=== PATIENT | male | born 1970 | race Caucasian/White ===

== ENCOUNTER 2020-06-19 06:55 | Emergency (ER) | payer MEDICAID ==
[~2020-06-19] VITALS: Ht 182.9 cm; Wt 109.1 kg
[~2020-06-19 06:55] MED LIST: ASPI-1265 PO
[2020-06-19] MEDS ORDERED: acetaminophen 325mg tablet PO ONE (07:50)
[2020-06-19 07:53] LABS: CLARITY,URINE CLEAR (Clear); COLOR,URINE YELLOW (Yellow); GLUCOSE, URINE NEGATIVE (Neg); KETONES,URINE NEGATIVE (Neg); LEUKOCYTE ESTERASE ,URINE NEGATIVE (Neg); NITRITES, URINE NEGATIVE (Neg); OCCULT BLOOD,URINE NEGATIVE (Neg); PROTEIN,URINE NEGATIVE (Neg); UA COLLECTION TYPE VOIDED; UROBILINOGEN,URINE 0.2 E.U/dL (0.2-1.0)
[2020-06-19 08:37] VITALS: BP 138/89
== END 2020-06-19 08:54 | disposition home or self-care (01) ==
LOC: ER 06:56
DX: I86.1 Scrotal varices (principal); K21.9 Gastro-esophageal reflux disease without esophagitis; E11.9 Type 2 diabetes mellitus without complications; Z79.82 Long term (current) use of aspirin
CPT/HCPCS: 76870; 81003; 99284

== ENCOUNTER 2020-11-16 11:47 | Emergency (ER) | payer MEDICAID ==
[~2020-11-16] VITALS: Ht 182.9 cm; Wt 9.1 kg
[2020-11-16] MEDS ORDERED: LIDOcaine 2% 10ml TOPICAL JELLY (Urojet) MM ONE (12:40)
--- NOTE | 2020-11-16 13:00 | NUR ---
[place] AWARE THAT I ATTEMPTED TO PLACE A NAVARRETE AFTER UROJET USED ATTEMPTED BOTH A 16 AND 18 [address] NAVARRETE FRANK THOMSON ASKED TO PLACE COUDEE
--- NOTE | 2020-11-16 13:26 | NUR ---
PA INFORMED THAT ONLY 125 ML OF URINE OUT AND URINATED AROUND NAVARRETE
[2020-11-16 13:40] LABS: CLARITY,URINE CLOUDY (Clear); COLOR,URINE STRAW (Yellow); GLUCOSE, URINE NEGATIVE (Neg); KETONES,URINE NEGATIVE (Neg); LEUKOCYTE ESTERASE ,URINE MODERATE (Neg); NITRITES, URINE NEGATIVE (Neg); OCCULT BLOOD,URINE LARGE (Neg); PROTEIN,URINE NEGATIVE (Neg); UROBILINOGEN,URINE 0.2 E.U/dL (0.2-1.0)
[2020-11-16 13:41] LABS: UA COLLECTION TYPE FOLEY CATH
[2020-11-16 13:47] LABS: BACTERIA,URINE 2+ /HPF (Neg); MUCUS STRANDS NONE SEEN /LPF (Neg); RBC,URINE 20-50 /HPF (0-2); RENAL CELLS, URINE FEW /HPF; SQUAMOUS EPITHELIAL CELL,UR NONE SEEN /LPF (FEW); WBC CLUMPS,URINE MODERATE /HPF (NEGATIVE); WBC,URINE TNTC /HPF (0-4)
[2020-11-16] MEDS ORDERED: SULF1TAB49 PO (14:59)
[2020-11-16 15:30] VITALS: BP 131/83
== END 2020-11-16 15:26 | disposition home or self-care (01) ==
LOC: ER 11:47
DX: R33.9 Retention of urine, unspecified (principal); N39.0 Urinary tract infection, site not specified; K21.9 Gastro-esophageal reflux disease without esophagitis; E11.9 Type 2 diabetes mellitus without complications; Z79.82 Long term (current) use of aspirin; Z79.899 Other long term (current) drug therapy
CPT/HCPCS: 51702; 81001; 87077; 87088; 87186; 99285

== ENCOUNTER 2022-07-30 00:58 | Emergency (ER) | payer MEDICAID ==
[~2022-07-30] VITALS: Ht 177.8 cm; Wt 90.9 kg
[2022-07-30] MEDS ORDERED: BEBTELOVIMAB 175 MG/2 ML VIAL IV ONE (02:20)
[2022-07-30] MEDS ORDERED: albuterol 2.5 MG/3 ML nebule NEB PRN (02:30)
[2022-07-30] MEDS ORDERED: acetaminophen 325mg tablet PO PRN (02:30)
[2022-07-30] MEDS ORDERED: hydrocortisone sod succ/PF 100mg/2ml inj. IV PRN (02:30)
[2022-07-30] MEDS ORDERED: diphenhydrAMINE 50 mg/ml inj IV PRN (02:30)
[2022-07-30] MEDS ORDERED: famotidine/PF 10 mg/ml inj IV PRN (02:30)
[2022-07-30] MEDS ORDERED: epiNEPHrine 1 mg/ml inj IM PRN (02:30)
[2022-07-30 03:14] VITALS: BP 131/76
== END 2022-07-30 03:56 | disposition home or self-care (01) ==
LOC: ER 01:00
DX: U07.1 COVID-19 (principal); E11.9 Type 2 diabetes mellitus without complications; K21.9 Gastro-esophageal reflux disease without esophagitis; Z91.012 Allergy to eggs; Z79.82 Long term (current) use of aspirin
CPT/HCPCS: 87635; 93005; 99284; C9803; M0222; Q0222